=== PATIENT | female | born 1990 | race Two or more races ===

== ENCOUNTER 2018-10-28 23:42 | Emergency (ER) | payer MEDICAID, OTHER ==
[2018-10-28 23:54] VITALS: BP 144/98
--- NOTE | 2018-10-29 00:07 | EDM.PDOC ---
ED HPI GENERAL MEDICAL PROBLEM - General Chief Complaint: Lower Extremity Injury/Pain Stated Complaint: CHEST PAIN, SOB Time Seen by Provider: 10/29/18 00:00 Source of Information: Reports: Patient, Old Records History Limitations: Reports: No Limitations - History of Present Illness INITIAL COMMENTS - FREE TEXT/NARRATIVE: 28 yo female dx last week with influenza presents with mild increased SOB and a mild discomfort in her L calf. She denies current cough or fever. No pleuritic chest pain. No swelling in either leg. Is on oral contraception. Has been more sedentary than usual due to her influenza. Onset Date: 10/28/18 Duration: Day(s): (1), Constant Location: Reports: Chest, Lower Extremity, Left Quality: Reports: Dull (L calf) Severity: Mild Improves with: Reports: None Worsens with: Reports: None Context: Reports: Other (see HPI) Associated Symptoms: Reports: Diaphoresis (more sweaty), Shortness of Breath ( mild). 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: Other (See Below) Other SOCIAL SECURITY BENEFITS INTERVIEWER History: 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 Neurological History: Reports: Migraines Psychiatric History: Reports: Anxiety - Infectious Disease History Infectious Disease History: Reports: Chicken Pox, Other (See Below) 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 Denies: Wheezing , Pleuritic Chest Pain, Sputum, Hemoptysis Cardiovascular: Reports: No Symptoms. Denies: Chest Pain GI/Abdominal: Reports: No Symptoms Genitourinary: Reports: No Symptoms Musculoskeletal: Reports: No Symptoms Skin: Reports: No Symptoms Neurological: Reports: No Symptoms Psychiatric: Reports: No Symptoms ED EXAM, GENERAL - Physical Exam Exam: See Below Exam Limited By: No Limitations General Appearance: Alert, WD/WN, No Apparent Distress, Obese Eye Exam: Bilateral Eye: Normal Inspection Ears: Normal External Exam, Normal Canal, Hearing Grossly Normal Ear Exam: Bilateral Ear: Auricle Normal, Canal Normal Nose: Normal Inspection, No Blood Throat/Mouth: Normal Inspection, Normal Lips, Normal Oropharynx, Normal Voice, No Airway Compromise Head: Atraumatic, Normocephalic Neck: Normal Inspection Respiratory/Chest: No Respiratory Distress, Lungs Clear, Normal Breath Sounds, No Accessory Muscle Use. No: Respiratory Distress Cardiovascular: Regular Rate, Rhythm, No Edema, Tachycardia Back Exam: Normal Inspection Extremities: Normal Inspection, Normal Range of Motion, Non-Tender, No Pedal Edema. No: Pedal Edema, Timothy's Sign, Limited Range of Motion, Increased Warmth , Mottled, Redness Neurological: Alert, Oriented, CN II-XII Intact, Normal Cognition, No Motor/ Sensory Deficits Psychiatric: Normal Affect, Normal Mood Skin Exam: Warm, Dry, Intact, Normal Color, No Rash Course - Vital Signs Last Recorded V/S: Last Vital Signs Temp 35.9 C 10/28/18 23:52 Pulse 105 H 10/28/18 23:52 Resp 16 10/28/18 23:52 BP 144/98 H 10/28/18 23:52 Pulse Ox 97 10/28/18 23:52 - Orders/Labs/Meds Labs: Laboratory Tests 10/29/18 Range/Units 00:11 D-Dimer, Quantitative < 100 (0.0-400.0) ng/mL Departure - Departure Time of Disposition: 00:34 Disposition: Home, Self-Care 01 Condition: Good Clinical Impression: Influenza - Discharge Information *PRESCRIPTION DRUG MONITORING PROGRAM REVIEWED*: No *COPY OF PRESCRIPTION DRUG MONITORING REPORT IN PATIENT NEREYDA: No Referrals: Ismael Brennan MD [Primary Care Provider] - Forms: ED Department Discharge Additional Instructions: Drink ample fluids. Recheck for fever or worsening symptoms.
== END 2018-10-29 00:45 | disposition home or self-care (01) ==
LOC: JP.ED 23:42
DX: J11.1 Influenza due to unidentified influenza virus with other respiratory manifestations (principal); F41.9 Anxiety disorder, unspecified; Z79.899 Other long term (current) drug therapy
CPT/HCPCS: 36415; 85379; 99284